=== PATIENT | female | born 1980 | race Caucasian/White ===

== ENCOUNTER → 2017-01-14 | Outpatient (CLI) | payer OTHER ==
[~2017-01-14] MED LIST: FIORTAB4 PO; IBUP400T20 PO; NUVAMIS PV
== END ==
LOC: HPND 12:32
PROVIDERS: ATTEND Obstetrics & Gynecology
DX: O09.522 Supervision of elderly multigravida, second trimester (principal); O35.1XX0 Maternal care for (suspected) chromosomal abnormality in fetus, not applicable or unspecified; O44.42 Low lying placenta NOS or without hemorrhage, second trimester; Z3A.18 18 weeks gestation of pregnancy
CPT/HCPCS: 76811

== ENCOUNTER → 2017-02-26 | Outpatient (CLI) | payer OTHER | LOC: HPND 14:30 | PROVIDERS: ATTEND Obstetrics & Gynecology | DX: O09.529 Supervision of elderly multigravida, unspecified trimester (principal); O44.02 Complete placenta previa NOS or without hemorrhage, second trimester | CPT/HCPCS: 76816 ==

== ENCOUNTER 2017-08-24 21:21 | Emergency (ER) | payer OTHER, MEDICAID ==
[~2017-08-24] VITALS: Ht 165.1 cm; Wt 59.0 kg
[2017-08-24 21:26] VITALS: BP 150/81; PULSE 90; RESP 16; TEMP 98.1; O2SAT 99
[2017-08-24] MEDS ORDERED: FEXO15TA PO (21:34)
[2017-08-24] MEDS ORDERED: KETO1SOL3 RIGHT EYE (21:34)
[2017-08-24] MEDS ORDERED: ERYTOIN10 RIGHT EYE (21:34)
--- NOTE | 2017-08-24 21:37 | PD ---
HPI . eye irritation Chief Complaint: Eye Problems/Injury Time Seen by Provider: 21:31 Travel History International Travel<30 days: No Contact w/Intl Traveler<30days: No Traveled to known affect area: No History of Present Illness HPI This patient presents with a chief complaint of 1 day history of eye irritation. She states she removed her contact and rinsed her eye with contact solution and then with water but that the symptoms persisted causing her to present tonight. She describes itching and watering. PFSH Past Medical History Diminished Hearing: No Headaches: Yes Immunizations Current: No ?: Not : 1 Para: 1 Social History Alcohol Use: No Tobacco Use: Yes (06/30 PPD) Substance Use: No Allergies-Medications (Allergen,Severity, Reaction): Coded Allergies: No Known Allergies (Verified , 03/14/13) Reported Meds & Prescriptions Reported Meds & Active Scripts Active Acular Opth Drops (Ketorolac Tromethamine) 0.5% Drops 1 Drop RIGHT EYE QID Pratibha Allergy (Fexofenadine HCl) 180 Mg Tab 180 Mg PO DAILY Erythromycin Opth Oint 5 Mg/Gm Oint 1 Applic RIGHT EYE QID 5 Days Motrin (Ibuprofen) 400 Mg Tab 400 Mg PO Q8 PRN Fioricet (Acetaminophen/Butalbital/Caffeine) Tab 1-2 Tab PO Q6 PRN Reported Nuvaring (Etonogestrel/Ethinyl Estradiol) Vagring 1 Ea PV DIRECTED VAGINAL RING TO REMAIN IN PLACE FOR THREE WEEKS. IT IS REMOVED FOR A ONE WEEK BREAK. A NEW RING IS INSERTED ONE WEEK AFTER THE LAST RING WAS REMOVED. Review of Systems Except as stated in HPI: all other systems reviewed are Neg Eyes: Positive: Redness, Tearing Physical Exam Narrative GENERAL: Awake and alert and in no acute distress. SKIN: Warm and dry. HEAD: Normocephalic/atraumatic. EYES: Pupils are equal. Extraocular movements are intact. Right eye has some mild conjunctival injection. There is cobblestoning. ENT: NECK: Normal range of motion. CARDIOVASCULAR: Regular rate and rhythm. RESPIRATORY: Nonlabored respirations. ABDOMEN: : MUSCULOSKELETAL: Atraumatic. NEUROLOGICAL: Nonfocal. PSYCHIATRIC: Appropriate mood and affect. Data Data Last Documented VS Vital Signs Date Time Temp Pulse Resp B/P (MAP) Pulse Ox O2 Delivery O2 Flow Rate FiO2 08/24/17 21:26 98.1 90 16 150/81 (104) 99 Orders Orders Ed Discharge Order (08/24/17 21:34) MDM Medical Decision Making Medical Screen Exam Complete: Yes Emergency Medical Condition: Yes Differential Diagnosis Differential diagnosis includes but is not limited to chemical irritation, allergic conjunctivitis, viral conjunctivitis, bacterial conjunctivitis, chronic dry eyes. Narrative Course This patient presents with right eye irritation. Clinically, she has allergic conjunctivitis. I will go ahead and cover her for possible bacterial conjunctivitis with erythromycin. She will also be treated with Pratibha and Acular. Diagnosis Primary Impression: Allergic condition Patient Instructions: General Instructions Departure Forms: Tests/Procedures Scripts Ketorolac Opth Drops (Acular Opth Drops) 0.5% Drops 1 DROP RIGHT EYE QID for Pain/Inflammation, #5 ML 0 Refills Prov: Evelia Duong MD 08/24/17 Fexofenadine (Pratibha Allergy) 180 Mg Tab 180 MG PO DAILY for Allergy Management, #30 TAB 0 Refills Prov: Evelia Duong MD 08/24/17 Erythromycin Opth Oint (Erythromycin Opth Oint) 5 Mg/Gm Oint 1 APPLIC RIGHT EYE QID for Infection for 5 Days, #1 TUBE 0 Refills Prov: Evelia Doung MD 08/24/17 Disposition: 01 DISCHARGE HOME Condition: Stable Evelia Duong MD Aug 24, 2017 21:37
[2017-08-24] MEDS ORDERED: NUVAMIS VAGINAL (21:41)
== END 2017-08-24 21:49 | disposition home or self-care (01) ==
LOC: PHEFT 21:21
DX: H10.11 Acute atopic conjunctivitis, right eye (principal)
CPT/HCPCS: 99283